=== PATIENT | female | born 1990 | race Two or more races ===

== ENCOUNTER 2017-06-17 10:59 | Emergency (ER) | payer OTHER ==
[~2017-06-17] VITALS: Ht 172.7 cm; Wt 77.1 kg
[2017-06-17 11:13] VITALS: BP 145/80
[2017-06-17] MEDS ORDERED: ACETAMINOPHEN ES 500 MG TABLET ONE (11:42)
[2017-06-17] MEDS ORDERED: ACETAMINOPHEN 325 MG TABLET PO ONE (12:00)
== END 2017-06-17 11:54 | disposition home or self-care (01) ==
LOC: ER 11:01
DX: S09.8XXA Other specified injuries of head, initial encounter (principal); S00.01XA Abrasion of scalp, initial encounter; W22.8XXA Striking against or struck by other objects, initial encounter; Y93.89 Activity, other specified; Y92.59 Other trade areas as the place of occurrence of the external cause; Y99.0 Civilian activity done for income or pay
CPT/HCPCS: A4606; Z7610